=== PATIENT | female | born 1970 | race African-American/Black ===

== ENCOUNTER → 2016-08-29 | Day surgery (SDC) | payer OTHER ==
[~2016-08-29] MED LIST: BUPIVACAINE HCL 0.25% 125 MG/50 ML VIAL ONE; CLINDAMYCIN PHOSPHATE 600 MG/4 ML VIAL ONE; DEXAMETHASONE SOD PHOSPHATE 4 MG/1 ML VIAL ONE; LIDOCAINE HCL 1%, 10 MG/ML (20ML VIAL) ONE; ONDANSETRON 4 MG/2 ML VIAL ONE; PROPOFOL 20 ML ONE; ROCURONIUM BROMIDE 50 MG/5 ML VIAL ONE
--- NOTE | 2016-09-01 13:20 | PATH ---
Surgical Pathology Report Patient Name: BALBIR SELLERS [facility]. Rec. #: [id number] /Age/Gender: 1970 (Age: 46) / F Account: [id number] Location: Taken: 08/29/2016 Received: 08/29/2016 Reported: 09/01/2016 Physicians: Zoila Carver M.D. 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 BENIGN BREAST TISSUE WITH FIBROCYSTIC CHANGES INCLUDING STROMAL FIBROSIS AND DUCTAL DILATATION, AND CLOTTED BLOOD. Comment: Recommend correlation with clinical and radiologic findings and follow up as clinically indicated. Electronically Signed Griffin Matthews M.D. Gross Description Received in formalin labeled "left breast 12:00 retro," is a 1.5 x 1.0 x 0.2 cm aggregate of chi-yellow fragments of fibroadipose tissue admixed with blood clot. The formalin is filtered and the specimen is entirely submitted in one cassette. Time to formalin fixation: Less than one minute Total formalin fixation time: Approximately 8 hours. /08/29/2016 saudi08/29/2016
--- NOTE | 2016-09-01 21:26 | OP ---
DATE OF OPERATION: 08/29/2016 PREOPERATIVE DIAGNOSIS: Left breast mass, 12 o'clock, retroareolar. POSTOPERATIVE DIAGNOSIS: Left breast mass, 12 o'clock, retroareolar. PROCEDURE: Left ultrasound-guided core biopsy with U-shaped clip placement. ANESTHESIA: Local. ATTENDING SURGEON: Kenisha Mccormack MD ESTIMATED BLOOD LOSS: Minimal. COMPLICATIONS: None. PROCEDURE: Patient was made aware of the risks and benefits of the procedure and consented. She was placed in the supine position and under sterile conditions, with 1% lidocaine for local anesthesia, a small chante was made in the skin. Using a 10-gauge suction biopsy device via inferolateral approach under ultrasound guidance, multiple cores were obtained and submitted to Pathology. Likewise under ultrasound guidance, a U-shaped clip was placed into the biopsy region. Well tolerated by patient. Steri-Strips and a sterile dressing was applied. Will contact patient with the result. KENISHA MCCORMACK M.D. [id number]
== END | disposition home or self-care (01) ==
LOC: FRADUS-SUR 13:53
PROVIDERS: ATTEND Surgery
PROC: 0HBU3ZX Excision of Left Breast, Percutaneous Approach, Diagnostic (ICD-10-PCS; principal; 2016-08-29)
DX: N63 Unspecified lump in breast (principal); D24.2 Benign neoplasm of left breast; N60.32 Fibrosclerosis of left breast; N64.89 Other specified disorders of breast
CPT/HCPCS: 19083; 87899; 88305-TC; A4648

== ENCOUNTER 2016-10-17 09:15 | Inpatient (IN) | payer OTHER ==
--- NOTE | 2016-10-09 13:28 | HP ---
Admitting History and Physical - Primary Care Physician PCP: Zoila Carver - Admission Chief Complaint: Right breast cancer History of Present Illness: 46 yo female was noted to have a right breast mass in the upper outer quad in June 2016. Mammogram and US was c/w a suspicious lesion in the 9:00 position. 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 MRI was c/w known cancer as well as a left enhancing lesion on the retroareolar aspect. Core bx of the left lesion (08/29/2016) was c/w a sclerosed fibroadenoma. Patient is now presenting for a right mastectomy, snbx, possible andx without reconstruction. History Source: Patient Limitations to Obtaining History: Poor Historian (patient with h/o ETOH and drug abuse.) - Past Medical History ...LMP: 09/18/16 Psych: Yes: Addictions (etoh/ drug abuse - cocaine) - Past Surgical History Past Surgical History: Yes: Cholecystectomy (2007) - Smoking History Smoking history: Current every day smoker Have you smoked in the past 12 months: Yes Aproximately how many cigarettes per day: 1 - Alcohol/Substance Use Hx Alcohol Use: Yes (2 cans daily) History of Substance Use: reports: Cocaine (reports recent use) Home Medications - Allergies Allergies/Adverse Reactions: Allergies Allergy/AdvReac Type Severity Reaction Status Date / Time Penicillins Allergy Verified 09/25/16 09:52 - Home Medications Home Medications: Ambulatory Orders Doxycycline Hyclate 100 mg PO BID 09/25/16 Family Disease History - Family Disease History Other Family History: paternal uncle-throat cancer Review of Systems - Review of Systems Constitutional: reports: No Symptoms Cardiovascular: reports: No Symptoms Respiratory: reports: No Symptoms Physical Examination Breast(s): Yes: Other (Right breast palpable mass noted at 3:00. No other suspicious masses or adenpathy noted bilaterally.) Problem List - Problems (1) Breast cancer, right breast Code(s): C50.911 - MALIGNANT NEOPLASM OF UNSP SITE OF RIGHT FEMALE BREAST Qualifiers: Breast location: upper outer quadrant of breast Patient sex: female Qualified Code(s): C50.411 - Malignant neoplasm of upper-outer quadrant of right female breast; Z17.0 - Estrogen receptor positive status [ER+] Assessment/Plan Plan: Right mastectomy with snbx, possible andx.
[2016-10-16 13:53] VITALS: BMI 26.2
[2016-10-17] MEDS ORDERED: BUPIVACAINE HCL/PF 0.25% (2.5MG/ML) 10 ML VIAL ONE ×2 (12:52→13:03)
[2016-10-17] MEDS ORDERED: BUPIVACAINE HCL/PF 0.5% (5MG/ML) 10 ML VIAL ONE (12:52)
[2016-10-17] MEDS ORDERED: MIDAZOLAM HCL 2 MG/2 ML SINGLE DOSE VIAL ONE ×3 (12:53)
[2016-10-17] MEDS ORDERED: DEXAMETHASONE SOD PHOSPHATE/PF 10 MG/ML SDV ONE (13:10)
[2016-10-17] MEDS ORDERED: CLINDAMYCIN 600 MG PREMIX BAG IVPB ONE (13:59)
--- NOTE | 2016-10-17 16:11 | EKG ---
Test Reason : Blood Pressure : / mmHG Vent. Rate : 057 BPM Atrial Rate : 057 BPM P-R Int : 220 ms QRS Dur : 100 ms QT Int : 458 ms P-R-T Axes : 038 048 041 degrees QTc Int : 445 ms SINUS BRADYCARDIA WITH 1ST DEGREE A-V BLOCK MINIMAL VOLTAGE CRITERIA FOR LVH, MAY BE NORMAL VARIANT BORDERLINE ECG NO PREVIOUS ECGS AVAILABLE Confirmed by AMBER HOLLEY MD ([id number]) on 10/17/2016 4:10:31 PM Referred By: Zoila Carver Confirmed By:AMBER HOLLEY MD
[2016-10-17] MEDS ORDERED: traMADol HCL 50 MG TABLET PO PRN (16:52)
[2016-10-17] MEDS ORDERED: HYDROmorphone HCL CARPU-JECT 1 MG/1 ML DISP.SYRIN IVPUSH PRN (16:52)
[2016-10-17] MEDS ORDERED: ACETAMINOPHEN 1000 MG/100 ML VIAL (NON FORMULARY) IVPB ONE ×2 (16:52→17:32)
[2016-10-17] MEDS ORDERED: diazePAM 5 MG TABLET PO PRN (16:52)
[2016-10-17] MEDS ORDERED: ONDANSETRON 4 MG/2 ML VIAL IVPUSH PRN (16:52)
[2016-10-17] MEDS ORDERED: ACETAMINOPHEN 325 MG TABLET (FP) PO PRN (16:59)
[2016-10-17] MEDS ORDERED: ONDANSETRON 4 MG/2 ML VIAL IVPB PRN (16:59)
[2016-10-17] MEDS ORDERED: ZOLPIDEM TARTRATE 5 MG TABLET PO PRN (16:59)
[2016-10-17] MEDS ORDERED: LACTATED RINGERS SOLUTION 1,000 ML IV SCH (17:00)
[2016-10-17] MEDS ORDERED: HYDROmorphone HCL CARPU-JECT 2 MG/1 ML DISP.SYRIN IVPUSH ONE (17:20)
[2016-10-17] MEDS ORDERED: HYDROmorphone HCL CARPU-JECT 2 MG/1 ML DISP.SYRIN ONE (17:22)
[2016-10-17] MEDS: DEXTROSE 5%-0.45% SALINE 1,000 ML IV SCH (18:33)
[2016-10-18] MEDS: DEXTROSE 5%-0.45% SALINE 1,000 ML IV SCH (06:00)
[2016-10-18 06:06] VITALS: TEMP 98.4
[2016-10-18 08:37] LABS: MCH 29.4 pg (25.7-33.7); MCHC 33.2 g/dl (32.0-36.0); MEAN CELL VOLUME 88.6 fl (80-96); MEAN PLT VOLUME 7.9 fl (7.5-11.1); PLATELET COUNT 196 K/MM3 (134-434); RDW 13.7 % (11.6-15.6); WHITE BLOOD COUNT 11.6 K/mm3 (4.0-10.0)
--- NOTE | 2016-10-18 09:17 | PN ---
Progress Note (short form) - Note Progress Note: Anesthesia Post op Alert and awake Vital Signs Temperature 98.4 F 10/18/16 06:00 Pulse Rate 67 10/18/16 06:00 Respiratory Rate 20 10/18/16 06:00 Blood Pressure 120/61 10/18/16 06:00 O2 Sat by Pulse Oximetry (%) 96 10/17/16 21:00 CBC, BMP 10/18/16 07:00 s/p right mastectomy Doing well post op Continue current care John Butler MD
[2016-10-18 09:50] VITALS: BP 110/51; PULSE 73
[2016-10-18] MEDS ORDERED: HEPARIN NA (PORCINE) 5,000 UNITS/ML 1ML VIAL SQ SCH (10:00)
[2016-10-18] MEDS ORDERED: LEVOFLOXACIN 500 MG IVPB 100 ML IVPB SCH (10:00)
--- NOTE | 2016-10-18 11:14 | DS ---
Physical Examination Vital Signs: Vital Signs Temperature 98.4 F 10/18/16 06:00 Pulse Rate 73 10/18/16 09:44 Respiratory Rate 18 10/18/16 09:44 Blood Pressure 110/51 10/18/16 09:44 O2 Sat by Pulse Oximetry (%) 96 10/18/16 09:00 Constitutional: Yes: No Distress Wound/Incision: Yes: Clean/Dry, Well Approximated (No signs of infection) Labs: CBC, BMP 10/18/16 07:00 Discharge Summary Reason For Visit: RIGHT BREAST CA Procedures: Principal: Right MTX with SLNBx Condition: Improved - Instructions Diet, Activity, Other Instructions: Post Operative Instructions - [facility] We hope your recovery will be uneventful. For those of you who have been given general anesthesia, there is a possibility you might have some lightheadedness and possibly nausea. It is important that each patient, especially those who have had general anesthesia, follow these instructions, please: 1. Do NOT operate a motor vehicle for 24 hours. 2. Do NOT drink any alcoholic beverages for 24 hours. 3. Do NOT take any sedatives, narcotics, or tranquilizers for 24 hours unless specifically ordered by your surgeon. 4. Do NOT undertake any strenuous exercise or outside activity for 24 hours unless specifically permitted by your surgeon. 5. Eat light foods that are easy to digest. If you have any problems with nausea and vomiting, lie down and rest. If it continues, call your surgeon. 6. Call your surgeon AT ONCE if you have problems with: a. Bleeding b. Urinating c. Excessive pain or drainage d. Numbness If any problems occur, call your physician first. If you cannot reach him/her, call the Ambulatory Surgery Unit at [phone], or the Emergency Room at [phone]. Follow up with Dr. Carver in 7 days. Medication: Tylenol as directed. Cipro one tablet twice a day. Wound Care: Keep wound dry and clean for 48 hours. You may remove the dressing after 48 hours and may shower. Keep steri-strips in place until follow-up appointment No heavy lifting or strenuous activities. BREAST SURGERY INSTRUCTIONS Eber Phan M.D., FACS Rainer Phan M.D., FACS Kenisha Reyes M.D., FACS 1. Please call the office at to make a follow up appointment with your surgeon. This number can be also used for any urgent issues you may have. 2. Call us immediately if any of the following occur: *Bleeding from the incision or drain site (a small amount is normal) *Fever or chills *Redness and worsening tenderness around the surgical site *Drainage of pus or fluid from the incision or drain site 3. You may change the surgical dressing two (2) days after your surgery, and may shower then. If you have drains, you may shower after they have been removed, until then take a sponge bath. 4. It is normal for there to be some bruising and tenderness around the surgical site, and the breast may also be firm in this area. 5. Please wear a comfortable bra (sports or surgical bra) all day and all night until your first follow-up visit with your surgeon. 6. The pain medicine you have been prescribed may make you constipated; make sure you drink plenty of water. You may use an over the counter laxative if needed. 7. You may resume your normal diet after surgery, although you may want to avoid rich foods for the first twenty-four (24) hours after surgery. Alcoholic drinks should be avoided while taking the prescribed pain medicine. 8. You may resume normal activities as long as there is no discomfort, but do not do upper body exercises until after your follow-up appointment. Do not lift anything heavier than a large phone book. You may resume driving once you have stopped taking the prescribed pain medicine and feel comfortable doing arm movements. wear bra Referrals: Zoila Carver MD [Staff Physician] - Disposition: HOME - Home Medications Comprehensive Discharge Medication List: Ambulatory Orders Ciprofloxacin HCl [Cipro] 500 mg PO BID #20 tablet 10/17/16
--- NOTE | 2016-10-21 07:09 | OP ---
DATE OF OPERATION: 10/17/2016 PREOPERATIVE DIAGNOSIS: Right breast cancer. POSTOPERATIVE DIAGNOSIS: Right breast cancer. PROCEDURE: Right total mastectomy and sentinel node biopsy. SURGEON: Zoila Carver MD BALANCE BRIDGE INSPECTOR: MALIKA Stahl ANESTHESIA: General. SPECIMENS: 1. [place] nodes. 2. Right breast. INDICATIONS FOR PROCEDURE: The patient is a 46-year-old woman who noticed a right breast lump in the upper outer quadrant in June,. Mammogram showed dense breast and a 4 x 5 cm area of calcifications in the upper outer quadrant. Ultrasound guided core biopsy of a mass showed DCIS. Because of the size of the calcifications, a mastectomy was recommended. She was recommended reconstructive surgery, but opted against it. She is going to the operating room for right total mastectomy and sentinel node biopsy. DESCRIPTION OF PROCEDURE: The patient was identified in the holding area. She was taken to nuclear medicine, where she underwent a lymphoscintigram. She was then taken back to the holding area, where informed consent was obtained, and the right breast was marked for laterality. She was taken to the operating room and placed on the operating table in the supine position. Sequential compression devices were placed on both legs. She received antibiotics prior to surgery. She was intubated. The right breast was prepped and draped in the usual fashion. The right breast was injected with isosulfan blue and massaged for 5 minutes. A time-out was performed. The procedure began with the sentinel node biopsy. The Neoprobe identified an area of high counts in the axilla. An incision was made directly overlying this area. The incision was deepened using electrocautery until the axillary fat was encountered. Blue dye could be seen in the fat. Dissection in this region revealed a blue node, which also exhibited high counts. This node was removed by it from the axillary fat using electrocautery. Dissection underneath this region revealed a 2nd node, which was removed, and also showed high counts. The nodes were sent to pathology for frozen section which showed no evidence of metastasis. A third lymph node, which did not show high counts, was sent as a separate specimen as an axillary lymph node. Dissection did not reveal any additional lymph nodes, and this part of the procedure was terminated. The axilla was examined for hemostasis. Once this was satisfactory, attention was then turned to the right mastectomy. An elliptical incision was made around the nipple areolar complex. The incision was deepened using electrocautery until the breast parenchyma was exposed. The skin was grasped with clamps, and electrocautery was used to mobilize the skin and separate it from the underlying breast tissue. The flap was continued towards the clavicle. Medially, the flap was extended towards the sternal border. Inferiorly, the flap was continued towards the junction with the abdominal musculature, and laterally towards the axilla. The breast was removed along with the underlying pectoralis major fascia. It was oriented with a single stitch superiorly and a long stitch laterally. Drains were then placed. Two No. 10 VAUGHN drains were placed through separate stab incisions. One was placed in the axilla, and the other was placed in the chest wall. They were secured using 3-0 nylon sutures. The axillary incison was closed using interrupted stitches of 3-0 Vicryl. The skin was closed with a running subcuticular closure of 4-0 Monocryl. The breast incision was closed using interrupted sutures of 3-0 Vicryl for the dermis, and a running subcuticular closure of 4-0 Monocryl for the skin. The wounds were cleaned, and a sterile dressing was applied. A surgical bra was then applied. The patient tolerated the procedure well. At the end of the procedure, all sponge count and lap and instrument counts were correct. She was awakened and taken to the recovery area in satisfactory condition. Jania [id number] MTDD
--- NOTE | 2016-10-23 17:12 | PATH ---
Surgical Pathology Report Patient Name: BALBIR SELLERS [facility]. Rec. #: [id number] /Age/Gender: 1970 (Age: 46) / F Account: [id number] Location: [address] [place] [address] Taken: 10/17/2016 Received: 10/17/2016 Reported: 10/23/2016 Physicians: Zoila Carver M.D. Specimen(s) Received A: RIGHT AXILLARY SENTINEL NODES B: RIGHT AXILLARY NODES C: RIGHT BREAST ANTERIOR MARGIN D: RIGHT BREAST Clinical History Right breast cancer Intraoperative Consult Diagnosis Right axillary sentinel nodes, touch preps and frozen sections: 2 lymph nodes, negative for carcinoma (2 FS, [address] TP). Dr. Hernandez, 10/17/16 Final Diagnosis A. SENTINEL LYMPH NODES, RIGHT AXILLARY, BIOPSY: TWO LYMPH NODES NEGATIVE FOR METASTATIC CARCINOMA BY H&E STAIN (0/2). B. LYMPH NODES, RIGHT AXILLARY, LYMPHADENECTOMY: TWO LYMPH NODES NEGATIVE FOR METASTATIC CARCINOMA (0/2). C. BREAST, RIGHT, ANTERIOR MARGIN, EXCISION: BENIGN FATTY TISSUE. NEGATIVE FOR DCIS. D. 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 DCIS EXTENT: DCIS IS EXTENSIVE, PRESENT IN THE UPPER OUTER QUADRANT, LOWER OUTER QUADRANT, AND FOCALLY IN THE LOWER INNNER QUADRANT; SEEN ON 12 OF 25 EXAMINED SLIDES, WITH THE GREATEST EXTENT ONE SLIDE OF 2.2 CM. SURGICAL RESECTION MARGINS: DCIS IS FOCALLY LESS THAN 0.5 MM FROM THE DEEP MARGIN OF RESECTION; DCIS IS MORE THAN 2.0 MM FROM THE ANTERIOR SOFT TISSUE MARGIN (ALSO REFER TO PART C). NIPPLE: NOT INVOLVED BY DCIS. SURROUNDING BREAST TISSUE: FIBROADENOMA (1.0 CM), FIBROCYSTIC CHANGE WITH FOCAL USUAL DUCTAL HYPERPLASIA, ADENOSIS, COLUMNAR CELL CHANGE, AND IDENTIFICATION, CYST FORMATION, APOCRINE METAPLASIA, STROMAL FIBROSIS WITH FOCAL ASSOCIATED MICROCALCIFICATIONS. PATHOLOGIC STAGING: REFER TO CHECKLIST BELOW. RECEPTOR STATUS: REFER TO CHECKLIST BELOW. Comment: The sections show extensive DCIS with focal duct expansion and marked periductal fibrosis. Immunohistochemical stains for p63 and SMM-HC performed and interpreted at [facility] on blocks D4, D8, and D25 show predominantly preserved myoepithelial cells with focal attenuation of myoepithelial cells in the areas of periductal fibrosis. No definitive invasion is identified. Comments DCIS of Breast: Surgical Pathology Cancer Case Summary Based on AJCC/UICC TNM, 7th edition Procedure _x_ Total mastectomy (including nipple and skin) Lymph Node Sampling _x_ [place] ans non-sentinel lymph nodes Specimen Laterality _x_ Right Estimated size (extent) of DCIS (greatest dimension using gross and microscopic evaluation): Number of blocks with DCIS: 12 Number of blocks examined: 25 Greatest extent on one slide: 2.2cm Nuclear Grade _x_ Grade II (intermediate) _x_ Grade III (high) Necrosis _x_ Present, central (expansive "comedo" necrosis) Microcalcifications _x_ Present in DCIS _x_ Present in non-neoplastic tissue Margins _x_ Margin(s) close to (< 1 mm) DCIS: deep (posterior) margin is <0.5 mm from DCIS Lymph Nodes Total number of nodes examined (sentinel and nonsentinel):4 Number of sentinel nodes examined: 2 Lymph Node Involvement Number of lymph nodes with macrometastases (>2 mm): 0 Number of lymph nodes with micrometastases (>0.2 mm to 2 mm and/or >200 cells): 0 Number of lymph nodes with isolated tumor cells (=0.2 mm and =200 cells): 0 Size of largest metastatic deposit: n/a Pathologic Staging (pTNM) Primary Tumor (pT): pTis(DCIS) (Ductal carcinoma in situ) Regional Lymph Nodes (pN): pN0 Distant Metastasis (pM): not applicable Biomarker Studies Results of ER and TN studies performed on block D4 at [facility] are as follows: ER (clone [id number] mouse monoclonal antibody by [employer]): >90% nuclear staining with strong to moderate intensity (Positive). TN (clone16 mouse monoclonal antibody by [employer]): >95% nuclear staining with strong intensity (Positive). Positive and negative controls (internal if applicable) show appropriate results. Formalin fixation time is within current ASCO/CAP recommendations for ER, TN and Her2 testing; cold ischemic time was not indicated; the tissue fixation appears adequate. Electronically Signed Dimitris Hernandez M.D. Gross Description A. Received fresh labeled "right axillary sentinel nodes" are 2 chi, irregular lymph nodes with attached fat measuring 1.0 x 0.9 x 0.5 cm and 1.8 x 1.1 x 0.5 cm. The specimens are bisected and entirely submitted for frozen section. The frozen section residue is entirely submitted in 2 cassettes as follows: 1-one whole bisected lymph node; 2-one whole bisected lymph node. B. Received in formalin labeled "right axillary nodes" are 2 chi, irregular lymph node with attached fat measuring 1.0 x 0.9 x 0.5 cm and 1.6 x 1.0 x 0.6 cm. The specimens are bisected and entirely submitted 2 cassettes as follows: 1-2-one whole bisected lymph node each. C. Received in formalin labeled "anterior margin right breast" is an 8.0 x 4.3 x 1.4 cm irregular portion of fibroadipose tissue with a suture marking the biopsy cavity site, for the surgeon. The new margin is inked blue and the specimen is serially sectioned. First [place] sections are submitted in 8 cassettes. D. Received in formalin, labeled "right breast" is a 301 gram, 14.8 x 12.8 x 3.2 cm right mastectomy specimen with a short suture marking the superior aspect and a long suture marking the lateral aspect of the specimen, per the surgeon. The anterior surface displays a 12.0 x 5.8 cm brown, elliptical portion of skin with a 1.1 cm in diameter nipple. The deep margin is inked black and the anterior soft tissue margin is inked blue. The specimen is serially sectioned from lateral to medial. Sectioning reveals a focal hemorrhagic previous biopsy site in the upper outer quadrant (UOQ). The focus of hemorrhage is surrounded by abundant dense, white, firm fibrous tissue. The remaining breast parenchyma displays abundant dense, white, firm fibrous tissue. There is a 1.0 x 0.7 x 0.4 cm chi, rubbery nodule in the upper inner quadrant (UIQ). The nodule is at 1.3 cm from anterior soft tissue margin. First [place] sections are submitted in 25 cassettes as follows: 1-serially sectioned nipple; 2-subareolar shave; 3-6-UOQ previous biopsy site; 4-85-tnxtpfwsqi UOQ tissue; 12-13-lower outer quadrant; 14-15-UIQ nodule; 65-83-pydworbhyi UIQ tissue; 20-21-lower inner quadrant; 22-retroareolar tissue; 23-anterior soft tissue margin; 24-skin; 25-deep margin. Time to fixation: not indicated. Total formalin fixation time: ~72h 10/17/201610/17/2016
== END 2016-10-18 14:05 | disposition home or self-care (01) | DRG 362 ==
LOC: JSAMEDAYSX 09:15 → EDSTATUS 13:00 → J6S 18:20
PROVIDERS: ADMIT Surgery; ATTEND Surgery
PROC: 0HTT0ZZ Resection of Right Breast, Open Approach (ICD-10-PCS; principal; 2016-10-17 13:00)
PROC: 07B80ZX Excision of Right Internal Mammary Lymphatic, Open Approach, Diagnostic (ICD-10-PCS; 2016-10-17 13:00)
DX: C50.411 Malignant neoplasm of upper-outer quadrant of right female breast (principal); Z17.0 Estrogen receptor positive status [ER+]; F14.90 Cocaine use, unspecified, uncomplicated; Z72.0 Tobacco use
CPT/HCPCS: 36415; 78195-TC; 84703; 85027; 88307-TC; 88331-TC; 88332; 88341-TC; 93005; 93010; 94760; A9541

== ENCOUNTER 2023-06-22 10:38 | Inpatient (IN) | payer OTHER ==
[2023-06-22 11:31] VITALS: BMI 28.0
[2023-06-22] MEDS ORDERED: guaiFENesin 600 MG TABLET.ER (FP) PO PRN (12:36)
[2023-06-22] MEDS ORDERED: hydrOXYzine PAMOATE 25 MG CAPSULE (FP) PO PRN (12:36)
[2023-06-22] MEDS ORDERED: NALOXONE HCL 0.4 MG/ML VIAL IM PRN (12:36)
[2023-06-22] MEDS ORDERED: NALOXONE HCL (KLOXXADO) 8 MG SPRAY NS PRN (12:36)
[2023-06-22] MEDS ORDERED: POLYETHYLENE GLYCOL (HEALTHYLAX) 3350 17 GM PACKET PO PRN (12:36)
[2023-06-22] MEDS ORDERED: BENZONATATE 200 MG CAPSULE PO PRN (12:36)
[2023-06-22] MEDS ORDERED: IBUPROFEN 400 MG TABLET (FP) PO PRN (12:36)
[2023-06-22] MEDS ORDERED: IBUPROFEN 600 MG TABLET (FP) PO PRN (12:36)
[2023-06-22] MEDS ORDERED: MAGNESIUM HYDROX 2400MG/30ML ORAL SUSPENSION 30 ML CUP PO PRN (12:36)
[2023-06-22] MEDS ORDERED: BENZOCAINE/MENTHOL (CHLORASEPTIC ) LOZENGE MM PRN (12:36)
[2023-06-22] MEDS ORDERED: MAG HYDROX/AL HYDROX/SIMETH 30 ML UNIT-DOSE CUP PO PRN (12:36)
[2023-06-22 15:24] VITALS: RESP 18
[2023-06-22] MEDS ORDERED: TUBERCULIN PPD 5 TU/0.1ML SYRINGE (IN PATIENT USE ONLY) ID ONE (16:39)
[2023-06-22] MEDS ORDERED: TUBERCULIN PPD 5 TU/0.1ML VIAL ID ONE (17:52)
[2023-06-22] MEDS: THIAMINE HCL 100 MG TABLET (FP) PO SCH (21:41)
[2023-06-22] MEDS ORDERED: MELATONIN 5 MG TABLETS PO SCH (22:00)
[2023-06-23] MEDS: NICOTINE 14 MG/24 HOURS TOPICAL PATCH TD SCH (10:12)
[2023-06-23] MEDS: FLUoxetine HCL 20 MG CAPSULE PO SCH (10:12)
[2023-06-23] MEDS: PRENATAL VITAMINS W/ FOLIC ACID TABLET (FP) PO SCH (10:12)
[2023-06-23] MEDS: NICOTINE POLACRILEX 2 MG GUM BUC PRN (10:12)
[2023-06-23] MEDS: TOPIRAMATE 25 MG TABLET PO SCH ×2 (10:15→22:07)
[2023-06-23] MEDS ORDERED: ALBUTEROL SO4 HFA INHALER IH PRN (10:40)
[2023-06-23] MEDS ORDERED: CHOLECALCIFEROL (VIT D3) 400 UNIT (10 MCG) TABLET PO SCH (10:45)
[2023-06-23] MEDS ORDERED: [UNRECOGNIZED DRUG - OTHER] PO SCH (10:45)
[2023-06-23] MEDS ORDERED: APIXABAN 5 MG TABLET PO SCH (10:45)
[2023-06-23] MEDS ORDERED: CYANOCOBALAMIN PO SCH (10:45)
[2023-06-23] MEDS ORDERED: PATIENT'S OWN MEDICATION (NON-FORMULARY) (Multivitamin [Multivitamin] 1 EACH Tablet) PO SCH (11:00)
[2023-06-23 11:42] LABS: HEMATOCRIT 36.8 % (32.4-45.2); HEMOGLOBIN 11.9 GM/dL (10.7-15.3); MCHC 32.4 g/dl (32.0-36.0); MEAN CELL VOLUME 92.6 fl (80-96); MEAN PLT VOLUME 8.1 fl (7.5-11.1); PLATELET COUNT 240 10^3/uL (134-434); RBC 3.98 M/mm3 (3.60-5.2); RDW 14.7 % (11.6-15.6); WHITE BLOOD COUNT 5.7 K/mm3 (4.0-10.0)
[2023-06-23 12:05] LABS: CHLORIDE 111 mmol/L (98-107); POTASSIUM 4.4 mmol/L (3.5-5.1); SODIUM 141 mmol/L (136-145)
[2023-06-23 12:09] LABS: BLOOD UREA NITROGEN 12.4 mg/dL (7-18)
[2023-06-23 12:10] LABS: CALCIUM 8.6 mg/dL (8.5-10.1)
[2023-06-23 12:11] LABS: ALBUMIN 3.2 g/dl (3.4-5.0)
[2023-06-23 12:12] LABS: ANION GAP 5 mmol/L (4-13); CO2 26 mmol/L (21-32); SGOT/AST 15 U/L (15-37); SGPT/ALT 25 U/L (13-61)
[2023-06-23 12:13] LABS: TOT PROT 6.4 g/dl (6.4-8.2)
[2023-06-23 12:14] LABS: BILIRUBIN,TOTAL 0.2 mg/dL (0.2-1)
[2023-06-23 12:15] LABS: ALK PHOS 53 U/L (45-117)
[2023-06-23 12:16] LABS: CREATININE 0.6 mg/dL (0.55-1.3); GLUCOSE,RANDOM 89 mg/dL (74-106)
[2023-06-23] MEDS: ANASTROZOLE 1 MG TABLET PO SCH (12:18)
[2023-06-23] MEDS: APIXABAN 5 MG TABLET PO SCH ×2 (12:19→22:05)
[2023-06-23] MEDS: LISINOPRIL 5 MG TABLET PO SCH (12:20)
[2023-06-23] MEDS: GABAPENTIN 300 MG CAPSULE PO SCH ×2 (14:26→22:04)
[2023-06-23 17:53] LABS: HIV INTERPRETATION NEGATIVE (NEGATIVE)
[2023-06-23] MEDS: THIAMINE HCL 100 MG TABLET (FP) PO SCH (22:04)
[2023-06-23] MEDS: QUEtiapine FUMARATE 400 MG TABLET PO SCH (22:04)
[2023-06-24] MEDS: GABAPENTIN 300 MG CAPSULE PO SCH ×3 (06:21→21:28)
[2023-06-24] MEDS: FLUoxetine HCL 20 MG CAPSULE PO SCH (09:49)
[2023-06-24] MEDS: TOPIRAMATE 25 MG TABLET PO SCH ×2 (09:49→21:31)
[2023-06-24] MEDS: LISINOPRIL 5 MG TABLET PO SCH (09:49)
[2023-06-24] MEDS: ASPIRIN 81 MG CHEWABLE TABLETS PO SCH (09:49)
[2023-06-24] MEDS: PRENATAL VITAMINS W/ FOLIC ACID TABLET (FP) PO SCH (09:49)
[2023-06-24] MEDS: NICOTINE 14 MG/24 HOURS TOPICAL PATCH TD SCH (09:50)
[2023-06-24] MEDS: ANASTROZOLE 1 MG TABLET PO SCH (09:50)
[2023-06-24] MEDS: CYANOCOBALAMIN 1,000 MCG TABLET (FP) PO SCH (09:50)
[2023-06-24] MEDS: CHOLECALCIFEROL (VIT D3) 1,000 UNIT (25 MCG) TABLET PO SCH (09:50)
[2023-06-24] MEDS: APIXABAN 5 MG TABLET PO SCH ×2 (09:51→21:28)
[2023-06-24] MEDS: CALCIUM (OYSTER SHELL) 500 MG TABLET (FP) PO SCH (10:57)
[2023-06-24] MEDS: LOPERAMIDE HCL 2 MG CAPSULE PO PRN (16:55)
[2023-06-24 18:12] LABS: EPI CELLS >36 /uL (0-25.1); HYALINE CASTS 8 /uL (0-3.1); PH,URINE 5.5 (5.0-8.0); URINE APPEARANCE TURBID; URINE BACTERIA 1860 /uL (0-1359); URINE BILIRUBIN NEGATIVE (NEGATIVE); URINE COLOR YELLOW; URINE GLUCOSE (UA) NEGATIVE (NEGATIVE); URINE KETONE TRACE (NEGATIVE); URINE LEUK ESTERASE 1+ (NEGATIVE); URINE NITRITE NEGATIVE (NEGATIVE); URINE PROTEIN TRACE (NEGATIVE); URINE UROBILINOGEN 0.2 mg/dL (0.2-1.0); URINE WBC 230 /uL (0-25.8)
[2023-06-24 18:41] LABS: URINE CRYSTALS MODERATE CALCIUM OXA /hpf; URINE RBC 20.3 /uL (0-23.9)
[2023-06-24] MEDS: THIAMINE HCL 100 MG TABLET (FP) PO SCH (21:28)
[2023-06-24] MEDS: QUEtiapine FUMARATE 400 MG TABLET PO SCH (21:28)
[2023-06-25] MEDS: GABAPENTIN 300 MG CAPSULE PO SCH ×3 (06:22→21:34)
[2023-06-25] MEDS: LOPERAMIDE HCL 2 MG CAPSULE PO PRN (06:23)
[2023-06-25] MEDS: CYANOCOBALAMIN 1,000 MCG TABLET (FP) PO SCH (10:03)
[2023-06-25] MEDS: CALCIUM (OYSTER SHELL) 500 MG TABLET (FP) PO SCH (10:03)
[2023-06-25] MEDS: TOPIRAMATE 25 MG TABLET PO SCH ×2 (10:03→21:34)
[2023-06-25] MEDS: ASPIRIN 81 MG CHEWABLE TABLETS PO SCH (10:03)
[2023-06-25] MEDS: PRENATAL VITAMINS W/ FOLIC ACID TABLET (FP) PO SCH (10:03)
[2023-06-25] MEDS: CHOLECALCIFEROL (VIT D3) 1,000 UNIT (25 MCG) TABLET PO SCH (10:03)
[2023-06-25] MEDS: APIXABAN 5 MG TABLET PO SCH ×2 (10:03→21:35)
[2023-06-25] MEDS: LISINOPRIL 5 MG TABLET PO SCH (10:03)
[2023-06-25] MEDS: FLUoxetine HCL 20 MG CAPSULE PO SCH (10:03)
[2023-06-25] MEDS: NICOTINE POLACRILEX 2 MG GUM BUC PRN (10:04)
[2023-06-25] MEDS: NICOTINE 14 MG/24 HOURS TOPICAL PATCH TD SCH (10:04)
[2023-06-25] MEDS: ANASTROZOLE 1 MG TABLET PO SCH (10:04)
[2023-06-25] MEDS: QUEtiapine FUMARATE 400 MG TABLET PO SCH (21:35)
[2023-06-25] MEDS: THIAMINE HCL 100 MG TABLET (FP) PO SCH (21:35)
[2023-06-26] MEDS: GABAPENTIN 300 MG CAPSULE PO SCH ×3 (05:34→21:29)
[2023-06-26] MEDS: APIXABAN 5 MG TABLET PO SCH ×2 (09:50→21:29)
[2023-06-26] MEDS: ASPIRIN 81 MG CHEWABLE TABLETS PO SCH (09:50)
[2023-06-26] MEDS: PRENATAL VITAMINS W/ FOLIC ACID TABLET (FP) PO SCH (09:50)
[2023-06-26] MEDS: CHOLECALCIFEROL (VIT D3) 1,000 UNIT (25 MCG) TABLET PO SCH (09:51)
[2023-06-26] MEDS: FLUoxetine HCL 20 MG CAPSULE PO SCH (09:51)
[2023-06-26] MEDS: CYANOCOBALAMIN 1,000 MCG TABLET (FP) PO SCH (09:51)
[2023-06-26] MEDS: NICOTINE 14 MG/24 HOURS TOPICAL PATCH TD SCH (09:52)
[2023-06-26] MEDS: TOPIRAMATE 25 MG TABLET PO SCH ×2 (09:52→21:30)
[2023-06-26] MEDS: CALCIUM (OYSTER SHELL) 500 MG TABLET (FP) PO SCH (09:54)
[2023-06-26] MEDS: ANASTROZOLE 1 MG TABLET PO SCH (09:55)
[2023-06-26] MEDS: LISINOPRIL 5 MG TABLET PO SCH (10:02)
[2023-06-26] MEDS: LOPERAMIDE HCL 2 MG CAPSULE PO PRN (13:53)
[2023-06-26] MEDS: SULFAMETHOXAZOLE/TRIMETHOPRIM 800MG/160MG D.S. TABLET PO SCH (21:29)
[2023-06-26] MEDS: QUEtiapine FUMARATE 400 MG TABLET PO SCH (21:30)
[2023-06-26] MEDS: THIAMINE HCL 100 MG TABLET (FP) PO SCH (21:30)
[2023-06-27] MEDS: GABAPENTIN 300 MG CAPSULE PO SCH ×3 (06:28→21:27)
[2023-06-27] MEDS: FLUoxetine HCL 20 MG CAPSULE PO SCH (09:40)
[2023-06-27] MEDS: CHOLECALCIFEROL (VIT D3) 1,000 UNIT (25 MCG) TABLET PO SCH (09:40)
[2023-06-27] MEDS: LOPERAMIDE HCL 2 MG CAPSULE PO PRN ×2 (09:40→21:29)
[2023-06-27] MEDS: ASPIRIN 81 MG CHEWABLE TABLETS PO SCH (09:40)
[2023-06-27] MEDS: CALCIUM (OYSTER SHELL) 500 MG TABLET (FP) PO SCH (09:40)
[2023-06-27] MEDS: APIXABAN 5 MG TABLET PO SCH ×2 (09:40→21:27)
[2023-06-27] MEDS: NICOTINE 14 MG/24 HOURS TOPICAL PATCH TD SCH (09:41)
[2023-06-27] MEDS: LISINOPRIL 5 MG TABLET PO SCH (09:41)
[2023-06-27] MEDS: PRENATAL VITAMINS W/ FOLIC ACID TABLET (FP) PO SCH (09:41)
[2023-06-27] MEDS: SULFAMETHOXAZOLE/TRIMETHOPRIM 800MG/160MG D.S. TABLET PO SCH ×2 (09:41→21:26)
[2023-06-27] MEDS: TOPIRAMATE 25 MG TABLET PO SCH ×2 (09:42→21:27)
[2023-06-27] MEDS: ANASTROZOLE 1 MG TABLET PO SCH (09:42)
[2023-06-27] MEDS: CYANOCOBALAMIN 1,000 MCG TABLET (FP) PO SCH (09:42)
[2023-06-27] MEDS: QUEtiapine FUMARATE 400 MG TABLET PO SCH (21:27)
[2023-06-27] MEDS: THIAMINE HCL 100 MG TABLET (FP) PO SCH (21:27)
[2023-06-28] MEDS: GABAPENTIN 300 MG CAPSULE PO SCH ×3 (05:51→21:26)
[2023-06-28] MEDS: FLUoxetine HCL 20 MG CAPSULE PO SCH (09:59)
[2023-06-28] MEDS: LISINOPRIL 5 MG TABLET PO SCH ×2 (10:00→11:17)
[2023-06-28] MEDS: APIXABAN 5 MG TABLET PO SCH ×2 (10:00→21:26)
[2023-06-28] MEDS: SULFAMETHOXAZOLE/TRIMETHOPRIM 800MG/160MG D.S. TABLET PO SCH ×2 (10:00→21:27)
[2023-06-28] MEDS: ASPIRIN 81 MG CHEWABLE TABLETS PO SCH (10:01)
[2023-06-28] MEDS: PRENATAL VITAMINS W/ FOLIC ACID TABLET (FP) PO SCH (10:01)
[2023-06-28] MEDS: ANASTROZOLE 1 MG TABLET PO SCH (10:01)
[2023-06-28] MEDS: CALCIUM (OYSTER SHELL) 500 MG TABLET (FP) PO SCH (10:15)
[2023-06-28] MEDS: CHOLECALCIFEROL (VIT D3) 1,000 UNIT (25 MCG) TABLET PO SCH (10:15)
[2023-06-28] MEDS: NICOTINE 14 MG/24 HOURS TOPICAL PATCH TD SCH (10:16)
[2023-06-28] MEDS: CYANOCOBALAMIN 1,000 MCG TABLET (FP) PO SCH (10:16)
[2023-06-28] MEDS: TOPIRAMATE 25 MG TABLET PO SCH ×2 (10:16→21:27)
[2023-06-28] MEDS: NICOTINE POLACRILEX 2 MG GUM BUC PRN (12:44)
[2023-06-28] MEDS: THIAMINE HCL 100 MG TABLET (FP) PO SCH (21:26)
[2023-06-28] MEDS: QUEtiapine FUMARATE 400 MG TABLET PO SCH (21:27)
[2023-06-29] MEDS: GABAPENTIN 300 MG CAPSULE PO SCH ×3 (06:06→21:34)
[2023-06-29] MEDS: CHOLECALCIFEROL (VIT D3) 400 UNIT (10 MCG) TABLET PO SCH (09:18)
[2023-06-29] MEDS: FLUoxetine HCL 20 MG CAPSULE PO SCH (09:18)
[2023-06-29] MEDS: ASPIRIN 81 MG CHEWABLE TABLETS PO SCH (09:18)
[2023-06-29] MEDS: TOPIRAMATE 25 MG TABLET PO SCH ×2 (09:18→21:34)
[2023-06-29] MEDS: SULFAMETHOXAZOLE/TRIMETHOPRIM 800MG/160MG D.S. TABLET PO SCH ×2 (09:18→21:34)
[2023-06-29] MEDS: ANASTROZOLE 1 MG TABLET PO SCH (09:19)
[2023-06-29] MEDS: PRENATAL VITAMINS W/ FOLIC ACID TABLET (FP) PO SCH (09:20)
[2023-06-29] MEDS: CYANOCOBALAMIN 1,000 MCG TABLET (FP) PO SCH (09:20)
[2023-06-29] MEDS: NICOTINE 14 MG/24 HOURS TOPICAL PATCH TD SCH (09:21)
[2023-06-29] MEDS: APIXABAN 5 MG TABLET PO SCH ×2 (09:21→21:34)
[2023-06-29] MEDS: ACETAMINOPHEN 325 MG TABLET (FP) PO PRN ×2 (09:33→14:27)
[2023-06-29 10:17] LABS: PH,URINE 7.5 (5.0-8.0); URINE APPEARANCE CLEAR; URINE BILIRUBIN NEGATIVE (NEGATIVE); URINE COLOR YELLOW; URINE GLUCOSE (UA) NEGATIVE (NEGATIVE); URINE KETONE NEGATIVE (NEGATIVE); URINE LEUK ESTERASE NEGATIVE (NEGATIVE); URINE NITRITE NEGATIVE (NEGATIVE); URINE PROTEIN NEGATIVE (NEGATIVE); URINE UROBILINOGEN 0.2 mg/dL (0.2-1.0)
[2023-06-29] MEDS: QUEtiapine FUMARATE 400 MG TABLET PO SCH (21:34)
[2023-06-29] MEDS: SUVOREXANT 5 MG TABLET PO PRN (21:35)
[2023-06-29] MEDS: THIAMINE HCL 100 MG TABLET (FP) PO SCH (21:36)
[2023-06-30] MEDS: GABAPENTIN 300 MG CAPSULE PO SCH ×3 (06:13→21:35)
[2023-06-30] MEDS: CYANOCOBALAMIN 1,000 MCG TABLET (FP) PO SCH (09:30)
[2023-06-30] MEDS: ASPIRIN 81 MG CHEWABLE TABLETS PO SCH (09:30)
[2023-06-30] MEDS: SULFAMETHOXAZOLE/TRIMETHOPRIM 800MG/160MG D.S. TABLET PO SCH ×2 (09:30→21:36)
[2023-06-30] MEDS: PRENATAL VITAMINS W/ FOLIC ACID TABLET (FP) PO SCH (09:30)
[2023-06-30] MEDS: CHOLECALCIFEROL (VIT D3) 400 UNIT (10 MCG) TABLET PO SCH (09:30)
[2023-06-30] MEDS: FLUoxetine HCL 20 MG CAPSULE PO SCH (09:30)
[2023-06-30] MEDS: APIXABAN 5 MG TABLET PO SCH ×2 (09:30→21:36)
[2023-06-30] MEDS: TOPIRAMATE 25 MG TABLET PO SCH ×2 (09:30→21:36)
[2023-06-30] MEDS: ANASTROZOLE 1 MG TABLET PO SCH (09:31)
[2023-06-30] MEDS: NICOTINE 14 MG/24 HOURS TOPICAL PATCH TD SCH (09:31)
[2023-06-30] MEDS: PANTOPRAZOLE 20 MG TABLET PO SCH (14:25)
[2023-06-30] MEDS: SUVOREXANT 5 MG TABLET PO PRN (21:36)
[2023-06-30] MEDS: QUEtiapine FUMARATE 400 MG TABLET PO SCH (21:36)
[2023-06-30] MEDS: THIAMINE HCL 100 MG TABLET (FP) PO SCH (21:36)
[2023-07-01] MEDS: GABAPENTIN 300 MG CAPSULE PO SCH ×3 (06:18→21:45)
[2023-07-01] MEDS: PRENATAL VITAMINS W/ FOLIC ACID TABLET (FP) PO SCH (09:39)
[2023-07-01] MEDS: CYANOCOBALAMIN 1,000 MCG TABLET (FP) PO SCH (09:39)
[2023-07-01] MEDS: TOPIRAMATE 25 MG TABLET PO SCH ×2 (09:40→21:45)
[2023-07-01] MEDS: SULFAMETHOXAZOLE/TRIMETHOPRIM 800MG/160MG D.S. TABLET PO SCH ×2 (09:40→21:46)
[2023-07-01] MEDS: ASPIRIN 81 MG CHEWABLE TABLETS PO SCH (09:41)
[2023-07-01] MEDS: PANTOPRAZOLE 20 MG TABLET PO SCH (09:41)
[2023-07-01] MEDS: FLUoxetine HCL 20 MG CAPSULE PO SCH (09:41)
[2023-07-01] MEDS: APIXABAN 5 MG TABLET PO SCH ×2 (09:41→21:46)
[2023-07-01] MEDS: ANASTROZOLE 1 MG TABLET PO SCH (09:42)
[2023-07-01] MEDS: NICOTINE 14 MG/24 HOURS TOPICAL PATCH TD SCH (09:42)
[2023-07-01] MEDS: CHOLECALCIFEROL (VIT D3) 400 UNIT (10 MCG) TABLET PO SCH (09:43)
[2023-07-01] MEDS: QUEtiapine FUMARATE 400 MG TABLET PO SCH (21:45)
[2023-07-01] MEDS: SUVOREXANT 5 MG TABLET PO PRN (21:45)
[2023-07-01] MEDS: THIAMINE HCL 100 MG TABLET (FP) PO SCH (21:46)
[2023-07-02] MEDS: GABAPENTIN 300 MG CAPSULE PO SCH ×3 (05:45→21:36)
[2023-07-02] MEDS: CHOLECALCIFEROL (VIT D3) 400 UNIT (10 MCG) TABLET PO SCH (09:58)
[2023-07-02] MEDS: PRENATAL VITAMINS W/ FOLIC ACID TABLET (FP) PO SCH (09:58)
[2023-07-02] MEDS: FLUoxetine HCL 20 MG CAPSULE PO SCH (09:58)
[2023-07-02] MEDS: TOPIRAMATE 25 MG TABLET PO SCH ×2 (09:58→21:36)
[2023-07-02] MEDS: NICOTINE 14 MG/24 HOURS TOPICAL PATCH TD SCH (09:59)
[2023-07-02] MEDS: PANTOPRAZOLE 20 MG TABLET PO SCH (09:59)
[2023-07-02] MEDS: CYANOCOBALAMIN 1,000 MCG TABLET (FP) PO SCH (09:59)
[2023-07-02] MEDS: ASPIRIN 81 MG CHEWABLE TABLETS PO SCH (09:59)
[2023-07-02] MEDS: APIXABAN 5 MG TABLET PO SCH ×2 (09:59→21:36)
[2023-07-02] MEDS: SULFAMETHOXAZOLE/TRIMETHOPRIM 800MG/160MG D.S. TABLET PO SCH ×2 (09:59→21:36)
[2023-07-02] MEDS: ANASTROZOLE 1 MG TABLET PO SCH (09:59)
[2023-07-02] MEDS: SUVOREXANT 10 MG TABLET PO PRN (21:35)
[2023-07-02] MEDS: QUEtiapine FUMARATE 400 MG TABLET PO SCH (21:35)
[2023-07-02] MEDS: THIAMINE HCL 100 MG TABLET (FP) PO SCH (21:36)
[2023-07-03] MEDS: GABAPENTIN 300 MG CAPSULE PO SCH ×3 (06:20→21:08)
[2023-07-03] MEDS: ACETAMINOPHEN 325 MG TABLET (FP) PO PRN (07:03)
[2023-07-03] MEDS: PRENATAL VITAMINS W/ FOLIC ACID TABLET (FP) PO SCH (09:35)
[2023-07-03] MEDS: ASPIRIN 81 MG CHEWABLE TABLETS PO SCH (09:35)
[2023-07-03] MEDS: PANTOPRAZOLE 20 MG TABLET PO SCH (09:35)
[2023-07-03] MEDS: SULFAMETHOXAZOLE/TRIMETHOPRIM 800MG/160MG D.S. TABLET PO SCH ×2 (09:35→21:08)
[2023-07-03] MEDS: CYANOCOBALAMIN 1,000 MCG TABLET (FP) PO SCH (09:35)
[2023-07-03] MEDS: TOPIRAMATE 25 MG TABLET PO SCH ×2 (09:35→21:09)
[2023-07-03] MEDS: FLUoxetine HCL 20 MG CAPSULE PO SCH (09:35)
[2023-07-03] MEDS: CHOLECALCIFEROL (VIT D3) 400 UNIT (10 MCG) TABLET PO SCH (09:35)
[2023-07-03] MEDS: APIXABAN 5 MG TABLET PO SCH ×2 (09:35→21:08)
[2023-07-03] MEDS: NICOTINE 14 MG/24 HOURS TOPICAL PATCH TD SCH (09:36)
[2023-07-03] MEDS: ANASTROZOLE 1 MG TABLET PO SCH (12:08)
[2023-07-03] MEDS: SUVOREXANT 10 MG TABLET PO PRN (21:07)
[2023-07-03] MEDS: QUEtiapine FUMARATE 400 MG TABLET PO SCH (21:08)
[2023-07-03] MEDS: THIAMINE HCL 100 MG TABLET (FP) PO SCH (21:09)
[2023-07-04] MEDS: GABAPENTIN 300 MG CAPSULE PO SCH ×3 (06:22→21:23)
[2023-07-04] MEDS: FLUoxetine HCL 20 MG CAPSULE PO SCH (10:03)
[2023-07-04] MEDS: ASPIRIN 81 MG CHEWABLE TABLETS PO SCH (10:03)
[2023-07-04] MEDS: CYANOCOBALAMIN 1,000 MCG TABLET (FP) PO SCH (10:03)
[2023-07-04] MEDS: CHOLECALCIFEROL (VIT D3) 400 UNIT (10 MCG) TABLET PO SCH (10:04)
[2023-07-04] MEDS: PANTOPRAZOLE 20 MG TABLET PO SCH (10:04)
[2023-07-04] MEDS: APIXABAN 5 MG TABLET PO SCH ×2 (10:04→21:24)
[2023-07-04] MEDS: PRENATAL VITAMINS W/ FOLIC ACID TABLET (FP) PO SCH (10:05)
[2023-07-04] MEDS: NICOTINE 14 MG/24 HOURS TOPICAL PATCH TD SCH (10:05)
[2023-07-04] MEDS: TOPIRAMATE 25 MG TABLET PO SCH ×2 (10:05→21:23)
[2023-07-04] MEDS: ANASTROZOLE 1 MG TABLET PO SCH (10:07)
[2023-07-04] MEDS: SUVOREXANT 10 MG TABLET PO PRN (21:23)
[2023-07-04] MEDS: QUEtiapine FUMARATE 400 MG TABLET PO SCH (21:24)
[2023-07-04] MEDS: THIAMINE HCL 100 MG TABLET (FP) PO SCH (21:24)
[2023-07-05] MEDS: GABAPENTIN 300 MG CAPSULE PO SCH ×3 (06:08→21:35)
[2023-07-05] MEDS: CHOLECALCIFEROL (VIT D3) 400 UNIT (10 MCG) TABLET PO SCH (10:02)
[2023-07-05] MEDS: NICOTINE 14 MG/24 HOURS TOPICAL PATCH TD SCH (10:02)
[2023-07-05] MEDS: FLUoxetine HCL 20 MG CAPSULE PO SCH (10:02)
[2023-07-05] MEDS: PRENATAL VITAMINS W/ FOLIC ACID TABLET (FP) PO SCH (10:03)
[2023-07-05] MEDS: PANTOPRAZOLE 20 MG TABLET PO SCH (10:03)
[2023-07-05] MEDS: CYANOCOBALAMIN 1,000 MCG TABLET (FP) PO SCH (10:03)
[2023-07-05] MEDS: APIXABAN 5 MG TABLET PO SCH ×2 (10:03→21:35)
[2023-07-05] MEDS: TOPIRAMATE 25 MG TABLET PO SCH ×2 (10:05→21:35)
[2023-07-05] MEDS: ANASTROZOLE 1 MG TABLET PO SCH (10:28)
[2023-07-05] MEDS: ASPIRIN 81 MG CHEWABLE TABLETS PO SCH (10:29)
[2023-07-05] MEDS: NICOTINE POLACRILEX 2 MG GUM BUC PRN (14:11)
[2023-07-05] MEDS: QUEtiapine FUMARATE 400 MG TABLET PO SCH (21:35)
[2023-07-05] MEDS: THIAMINE HCL 100 MG TABLET (FP) PO SCH (21:35)
[2023-07-05] MEDS: SUVOREXANT 10 MG TABLET PO PRN (21:35)
[2023-07-05] MEDS ORDERED: SUVOREXANT 10 MG TABLET PO PRN (22:00)
[2023-07-05] MEDS: ACETAMINOPHEN 325 MG TABLET (FP) PO PRN (22:21)
[2023-07-06] MEDS: GABAPENTIN 300 MG CAPSULE PO SCH (05:19)
[2023-07-06 07:40] VITALS: BP 130/73; PULSE 84; TEMP 97.7
[2023-07-06] MEDS: CHOLECALCIFEROL (VIT D3) 400 UNIT (10 MCG) TABLET PO SCH (09:26)
[2023-07-06] MEDS: FLUoxetine HCL 20 MG CAPSULE PO SCH (09:26)
[2023-07-06] MEDS: PRENATAL VITAMINS W/ FOLIC ACID TABLET (FP) PO SCH (09:27)
[2023-07-06] MEDS: NICOTINE 14 MG/24 HOURS TOPICAL PATCH TD SCH (09:27)
[2023-07-06] MEDS: APIXABAN 5 MG TABLET PO SCH (09:27)
[2023-07-06] MEDS: PANTOPRAZOLE 20 MG TABLET PO SCH (09:27)
[2023-07-06] MEDS: CYANOCOBALAMIN 1,000 MCG TABLET (FP) PO SCH (09:27)
[2023-07-06] MEDS: TOPIRAMATE 25 MG TABLET PO SCH (09:27)
[2023-07-06] MEDS: ACETAMINOPHEN 325 MG TABLET (FP) PO PRN (09:28)
[2023-07-06] MEDS: ANASTROZOLE 1 MG TABLET PO SCH (09:33)
[2023-07-06] MEDS: ASPIRIN 81 MG CHEWABLE TABLETS PO SCH (10:45)
== END 2023-07-06 10:10 | disposition home or self-care (01) | DRG 772 ==
LOC: YASAS 10:38 → Y5N 14:32
PROVIDERS: ADMIT Allergy & Immunology; ATTEND Psychiatry & Neurology Pain Medicine
PROC: HZ42ZZZ Group Counseling for Substance Abuse Treatment, Cognitive-Behavioral (ICD-10-PCS; principal; 2023-06-22)
DX: F14.20 Cocaine dependence, uncomplicated (principal); F12.20 Cannabis dependence, uncomplicated; F17.210 Nicotine dependence, cigarettes, uncomplicated; F31.9 Bipolar disorder, unspecified; F19.24 Other psychoactive substance dependence with psychoactive substance-induced mood disorder; G62.9 Polyneuropathy, unspecified; I10 Essential (primary) hypertension; J45.909 Unspecified asthma, uncomplicated; K21.9 Gastro-esophageal reflux disease without esophagitis; N39.0 Urinary tract infection, site not specified; E11.9 Type 2 diabetes mellitus without complications; Z79.84 Long term (current) use of oral hypoglycemic drugs; Z85.3 Personal history of malignant neoplasm of breast; Z90.11 Acquired absence of right breast and nipple; Z86.718 Personal history of other venous thrombosis and embolism; Z79.01 Long term (current) use of anticoagulants; Z86.711 Personal history of pulmonary embolism; Z88.0 Allergy status to penicillin
CPT/HCPCS: 0241U-QW; 36415; 80053; 80307; 81003; 82962; 85027; 86780; 87086; 87389; 87635; 87811; 93005; 93010